=== PATIENT | female | born 1980 | race Caucasian/White ===

== ENCOUNTER 2017-04-18 13:35 | Emergency (ER) | payer OTHER ==
[~2017-04-18] VITALS: Ht 165.1 cm; Wt 117.9 kg
[~2017-04-18 13:35] MED LIST: DEPAKOTE ER500 MG; FLOMAX; NORCO 5-325 TA1 EACH PO; ORTHO TRI-CYCL1 EACH; PAXIL20 MG; PERCOCET 5-3251 EACH; TAMSULOSIN HCL0.4 M1 PO; ZOFRAN4 MG PO
[2017-04-18] MEDS ORDERED: VALIUM5 MG PO (16:23)
[2017-04-18] MEDS ORDERED: PREDNISONE50 MG PO (16:23)
[2017-04-18] MEDS ORDERED: NORCO 5-325 TA1 EACH PO (16:23)
[2017-04-18 17:23] VITALS: BP 115/64
== END 2017-04-18 17:23 | disposition home or self-care (01) ==
LOC: ER 13:35
DX: M54.5 Low back pain (principal); I10 Essential (primary) hypertension; Z87.442 Personal history of urinary calculi; Z88.6 Allergy status to analgesic agent; Z88.8 Allergy status to other drugs, medicaments and biological substances